=== PATIENT | male | born 1945 | race Caucasian/White ===

== ENCOUNTER 2016-09-19 09:05 | Day surgery (SDC) | payer MEDICARE, OTHER ==
--- NOTE | 2016-09-14 16:37 | HP ---
ADMISSION DIAGNOSIS: Excision with skin grafting. HISTORY: The patient has lesion, almost certainly malignant, requiring excision and skin graft. PAST MEDICAL HISTORY: ALLERGIES: None. MEDICATIONS: Tamsulosin, benazepine, Simvastin, amlodipine, aspirin. SURGERIES: 2006. SOCIAL HISTORY: Negative. FAMILY HISTORY: Negative. REVIEW OF SYSTEMS: Negative. PHYSICAL EXAMINATION: VITAL SIGNS: Normal. HEENT: Lesion on the left nasal naris. CHEST: Clear. COR: Regular. IMPRESSION: Lesion left nose. PLAN: Excision and skin graft.
[~2016-09-19 09:05] MED LIST: MINERAL OIL LIGHT 10 ML FOR SURGERY ONE; XYLOCAINE 1% HCL 20 ML MDV ONE
[2016-09-19] MEDS ORDERED: Sodium Chloride 0.9% 1000 ML 1,000 ML IV SCH (09:15)
[2016-09-19 09:24] VITALS: BP 137/61; PULSE 75; O2SAT 95
[2016-09-19] MEDS ORDERED: BACIGUENT 30 GM ONE (11:59)
[2016-09-19] MEDS ORDERED: DEMEROL 50 MG IJ ONE (16:03)
[2016-09-19] MEDS ORDERED: VERSED 5 MG/5 ML IV ONE (16:03)
--- NOTE | 2016-09-20 08:23 | OP ---
SURGERY DATE/TIME: 09/19/2016 1125 PREOPERATIVE DIAGNOSIS: Probable skin cancer on the nose, probable skin cancer right cheek. POSTOPERATIVE DIAGNOSIS: Probable skin cancer on the nose, probable skin cancer right cheek. PROCEDURES: 1) Excision of cheek lesion 1 cm lesion through a 2.5 cm elliptical excision with closure. 2) A 1.5 cm nose lesion excision through a 2 cm circular skin incision with harvesting of skin graft and application of split thickness skin graft. SURGEON: Celso Singer M.D. ANESTHESIA: Local IVS. COMPLICATIONS: None. CONDITION: Stable. INDICATION: The patient with the above two lesions. DESCRIPTION OF PROCEDURE: Taken to surgery. Routine prep and drape. 1% lidocaine. IV sedation titrated. Time out performed. Two areas taken and repaired as described and was satisfactory. The patient tolerated the procedure well.
== END 2016-09-19 13:00 | disposition home or self-care (01) ==
LOC: SDC 09:05
PROVIDERS: ATTEND Surgery
PROC: 0HB1XZZ Excision of Face Skin, External Approach (ICD-10-PCS; principal; 2016-09-19)
PROC: 0HR1X74 Replacement of Face Skin with Autologous Tissue Substitute, Partial Thickness, External Approach (ICD-10-PCS; 2016-09-19)
DX: C44.319 Basal cell carcinoma of skin of other parts of face (principal); C44.311 Basal cell carcinoma of skin of nose
CPT/HCPCS: 36415; J2175; J2250; A9270-GY

== ENCOUNTER 2022-02-08 06:19 | Day surgery (SDC) | payer MEDICARE, OTHER ==
[2022-02-08] MEDS ORDERED: Lactated Ringers 1,000 ML IV SCH (06:30)
[2022-02-08] MEDS ORDERED: Xylocaine-Mpf 2% 5 Ml Vial ONE (07:54)
[2022-02-08] MEDS ORDERED: DIPRIVAN 200 MG/20 ML IV ONE ×2 (07:54→08:12)
[2022-02-08] MEDS ORDERED: ATROPINE SULFATE 1MG ONE (08:00)
[2022-02-08] MEDS ORDERED: Ephedrine Sulfate 50 MG/ML ONE (08:09)
[2022-02-08 09:22] VITALS: BP 102/59; PULSE 68; O2SAT 96
--- NOTE | 2022-02-08 12:52 | OP ---
SURGERY DATE: 02/08/22 SURGERY TIME: 755 PREOPERATIVE DIAGNOSIS: 1. HISTORY OF COLON POLYPS. POSTOPERATIVE DIAGNOSIS: 1. MODERATE TO SEVERE SIGMOID DIVERTICULOSIS, OTHERWISE NORMAL COLON. PROCEDURE: 1. Colonoscopy. SURGEON: Dr. Sampson. ANESTHESIA: MAC. Medications given by the Anesthesia Department. BRIEF HISTORY: The patient is a 76 y/o WM presenting now for a screening for previous history of colon polyps. The patient reports 7 years ago he had polyps removed. He has had no problems since then. The patient was appraised of the risks of the procedure including the risk of perforation, phlebitis, untoward reaction to medication, bleeding, and missed lesions. The patient verbalized his understanding and desired to have the procedure performed. DESCRIPTION OF PROCEDURE: The patient was given the medications by the Anesthesia Department. He had continuous pulse oximetry, ECG monitoring, and intermittent BP monitoring during the examination. He was placed in the left lateral decubitus position. A digital rectal examination was performed and revealed normal anal sphincter tone, no masses, and an enlarged but normal otherwise prostate. The flexible Olympus pediatric colonoscope was used to intubate the rectum. A view of the colon was developed sequentially to the cecum. Upon insertion and withdrawal, including a retroflex view in the rectum, was noted moderate to severe sigmoid diverticulosis. No polyps however were noted. The scope was removed from the patient who tolerated the procedure well and was sent back to OP recovery in good condition. The prep was noted to be fair to at times poor with some solid stool still left in the colon.
== END 2022-02-08 09:25 | disposition home or self-care (01) ==
LOC: SDC 06:19
PROVIDERS: ATTEND Family Medicine
DX: Z09 Encounter for follow-up examination after completed treatment for conditions other than malignant neoplasm (principal); Z86.010 Personal history of colon polyps; K57.30 Diverticulosis of large intestine without perforation or abscess without bleeding
CPT/HCPCS: 99100; J0461; J2704

== ENCOUNTER 2022-10-18 10:31 | Emergency (ER) | payer MEDICARE, OTHER ==
--- NOTE | 2022-10-18 10:51 | ERPHSYRPT ---
- History of Present Illness Time Seen by Provider: 10/18/22 10:51 Source: patient, family Exam Limitations: no limitations Physician History: This is a 77-year-old white male patient of Dr. Randal Costa who was brought to the emergency department by his who provided additional, independent medical history and presents with sudden onset of lower back pain and lower abdominal pain at approximately 5 AM this morning. Pain has progressively worsened. Patient took 50 mg of tramadol approximately 10 AM. He had no nausea vomiting or diarrhea symptoms. Patient has a history of hypertension and hyperlipidemia. He does have a known thoracic aneurysm but no known abdominal aortic aneurysm. He has a history of nephrolithiasis requiring lithotripsy in the past. Patient denies chest pain. Patient denies shortness of breath. Patient did not suffer any fall or acute trauma. Timing/Duration: today Method of Injury: other (No injury) Quality: sharp Back Pain Location: lumbar spine Severity of Pain-Max: mild (Moderate) Severity of Pain-Current: moderate Associated Symptoms: lower back pain, No urinary incontinence, No loss of bowel control, No constipation, No problems urinating, No light-headedness, No dizziness, No numbness in legs/feet, No weakness Previous symptoms: no prior history, no recent treatment Allergies/Adverse Reactions: Penicillins Allergy (Mild, Verified 10/18/22 10:45) Hives Home Medications: Amlodipine Besylate 10 mg [Norvasc 10 MG] 10 mg PO DAILY 10/18/11 [History] Aspirin EC 81 mg [Ecotrin 81 mg] 81 mg PO DAILY 10/18/11 [History] Benazepril/Hydrochlorothiazide [Benazepril-Hctz 20-12.5 mg Tab] 1 each PO DAILY 10/18/11 [History] Simvastatin 20Mg [Zocor 20Mg] 20 mg PO HS 10/18/11 [History] Tamsulosin HCl 0.4 mg [Flomax 0.4 MG] 0.4 mg PO DAILY 10/18/11 [History] Metoprolol Tartrate 25 mg [Lopressor 25MG Tab] 1 tab PO BID 01/31/22 [History] Hx Influenza Vaccination/Date Given: Yes Hx Pneumococcal Vaccination/Date Given: Yes Travel Risk - International Travel Have you traveled outside of the country in past 3 weeks: No - Coronavirus Screening Are you exhibiting any of the following symptoms?: No Close contact with a COVID-19 positive Pt in past 14-21 Days: No - Review of Systems Constitutional: No Symptoms Eyes: No Symptoms Ears, Nose, & Throat: No Symptoms Respiratory: No Symptoms Cardiac: No Symptoms Abdominal/Gastrointestinal: Abdominal Pain (Bilateral lower quadrant), No Nausea, No Vomiting, No Diarrhea, No Constipation, No Hematochezia, No Melena Genitourinary Symptoms: No Symptoms Musculoskeletal: Back Pain Skin: No Symptoms Neurological: No Symptoms Psychological: No Symptoms Endocrine: No Symptoms Hematologic/Lymphatic: No Symptoms Immunological/Allergic: No Symptoms All Other Systems: Reviewed and Negative - Past Medical History Pertinent Past Medical History: Yes Neurological History: No Pertinent History ENT History: No Pertinent History Cardiac History: High Cholesterol, Hypertension Respiratory History: No Pertinent History Endocrine Medical History: No Pertinent History Musculoskeletal History: No Pertinent History GI Medical History: Gallbladder Disease, Polyps History: No Pertinent History Psycho-Social History: No Pertinent History Male Reproductive Disorders: Prostate Problems - Past Surgical History Past Surgical History: Yes Neuro Surgical History: No Pertinent History Cardiac: No Pertinent History Respiratory: No Pertinent History Gastrointestinal: Cholecystectomy Genitourinary: No Pertinent History Musculoskeletal: Orthopedic Surgery Male Surgical History: Vasectomy Other Surgical History: rt lower leg above ankle with pins placed, fx ribs 8 back skin cancer removed and facial skin cancer removed, 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" - Social History Smoking Status: Former smoker Exposure to second hand smoke: No Drug Use: none - Nursing Vital Signs Nursing Vital Signs: Initial Vital Signs Temperature 97 F 10/18/22 10:44 Pulse Rate 60 10/18/22 10:44 Respiratory Rate 16 10/18/22 10:44 Blood Pressure 159/79 10/18/22 10:44 O2 Sat by Pulse Oximetry 96 10/18/22 10:44 Pain Scale Pain Intensity [Right Lower 8 Back] Pain Intensity 5 - Physical Exam General Appearance: no apparent distress, alert Eye Exam: PERRL/EOMI, eyes nml inspection Ears, Nose, Throat Exam: normal ENT inspection, moist mucous membranes Neck Exam: normal inspection, non-tender, supple, full range of motion Respiratory Exam: normal breath sounds, lungs clear, airway intact, No chest tenderness, No respiratory distress Cardiovascular Exam: regular rate/rhythm, normal heart sounds, normal peripheral pulses Gastrointestinal Exam: soft, normal bowel sounds, tenderness (Mild bilateral lower quadrant to palpation), No rebound Back Exam: normal inspection, normal range of motion, No CVA tenderness, No ve rtebral tenderness Extremity Exam: normal inspection, normal range of motion, pelvis stable Neurologic Exam: alert, oriented x 3, cooperative, rescue worker II-XII nml as tested, normal mood/affect, nml cerebellar function, nml station & gait, sensation nml Skin Exam: normal color, warm, dry Lymphatic Exam: No adenopathy SpO2 Interpretation: normal O2 Delivery: Room Air - Course Nursing assessment & vital signs reviewed: Yes Ordered Tests: Active Orders 24 hr Category Date Time Status IV Insertion STAT Care 10/18/22 10:56 Active ABDOMEN AND PELVIS W/0 CONTRAS [CT] Stat Exams 10/18/22 10:57 Completed RECONSTRUCTION [CT] Routine Exams 10/18/22 11:02 Completed AMYLASE Stat Lab 10/18/22 11:02 Received CBC W DIFF Stat Lab 10/18/22 11:02 Completed CMP Stat Lab 10/18/22 11:02 Received CULTURE,URINE Stat Lab 10/18/22 11:03 Received LIPASE Stat Lab 10/18/22 11:02 Received PROTIME WITH INR Stat Lab 10/18/22 11:02 Received UA W/RFX UR CULTURE Stat Lab 10/18/22 11:03 Completed Medication Summary Discontinued Medications Generic Name Dose Route Start Last Admin Trade Name Jesusq PRN Reason Stop Dose Admin Hydromorphone HCl 0.5 mg 10/18/22 11:10 10/18/22 11:15 Hydromorphone 1 Mg/1ml Inj IV 10/18/22 11:11 0.5 mg STAT ONE Administration Hydromorphone HCl Confirm 10/18/22 11:13 Hydromorphone 1 Mg/1ml Inj Administered 10/18/22 11:14 Dose 1 mg .ROUTE .STK-MED ONE Ondansetron HCl 4 mg 10/18/22 11:10 10/18/22 11:15 Ondansetron Hcl 4 Mg/2 Ml Vial IV 10/18/22 11:11 4 mg STAT ONE Administration Ondansetron HCl Confirm 10/18/22 11:13 Ondansetron Hcl 4 Mg/2 Ml Vial Administered 10/18/22 11:14 Dose 4 mg .ROUTE .STK-MED ONE Lab/Rad Data: Laboratory Result Diagrams 10/18/22 11:02 Laboratory Results 10/18/22 10/18/22 Range/Units 11:03 11:02 WBC 7.5 (4.0-10.5) x10^3/uL RBC 5.12 (4.1-5.6) x10^6/uL Hgb 15.4 (12.5-18.0) g/dL Hct 44.9 (42-50) % MCV 87.7 (78-100) fL MCH 30.1 (26-32) pg MCHC 34.3 (32-36) g/dL RDW 13.1 (11.5-14.0) % Plt Count 260 (150-450) x10^3/uL MPV 9.6 (7.5-11.0) fL Gran % 70.2 H (36.0-66.0) % Immature Gran % (Auto) 0.4 (0.00-0.4) % Nucleat RBC Rel Count 0.0 (0.00-0.1) % Eos # (Auto) 0.19 (0-0.5) x10^3/uL Immature Gran # (Auto) 0.03 (0.00-0.03) x10^3u/L Absolute Lymphs (auto) 1.42 (1.0-4.6) x10^3/uL Absolute Monos (auto) 0.54 (0.0-1.3) x10^3/uL Absolute Nucleated RBC 0.00 (0.00-0.01) x10^3u/L Lymphocytes % 18.9 L (24.0-44.0) % Monocytes % 7.2 (0.0-12.0) % Eosinophils % 2.5 (0.00-5.0) % Basophils % 0.8 (0.0-0.4) % Absolute Granulocytes 5.26 (1.4-6.9) x10^3/uL Basophils # 0.06 (0-0.4) x10^3/uL Urine Color Yellow (Yellow) Urine Appearance Clear (Clear) Urine pH 5.0 (4.6-8.0) Ur Specific [place] 1.015 (1.005-1.030) Urine Protein Negative (Negative) Urine Glucose (UA) Negative (Negative) mg/dL Urine Ketones Negative (Negative) Urine Blood Moderate A (Negative) Urine Nitrite Negative (Negative) Urine Bilirubin Negative (Negative) Urine Urobilinogen 0.2 (0.2) mg/dL Ur Leukocyte Esterase Moderate A (Negative) U Hyaline Cast (Auto) NONE SEEN (0-2) /LPF Urine Microscopic RBC 11-20 A (0-5) /HPF Urine Microscopic WBC 21-50 A (0-5) /HPF Ur Epithelial Cells None Seen (None Seen) /HPF Urine Bacteria Rare A (None Seen) /HPF Urine Culture Reflexed YES (NO) - Progress Progress: improved, pain not gone completely, re-examined Progress Note: 10/18/22 11:49 This patient's medical issue is 1 of moderate complexity. Level complexity in the work-up performed is based on review of the patient's past medical history, review the patient's medication list, review the patient's drug allergy list, history of present illness and physical findings on examination. The work-up in this patient includes intravenous line placement, infusion of 1 L normal saline solution, infusion of 4 mg intravenous Zofran, infusion of 1 mg intravenous Dilaudid, CBC, CMP, amylase, lipase and urinalysis. We also are ordering a CT scan of the abdomen pelvis with reconstruction of the lumbar spine. We want to evaluate the abdomen and pelvis, aorta and lumbar spine for any acute abnormalities. The CT scan of the abdomen and pelvis without contrast as well as reconstruction of the lumbar spine shows the following findings: There is a 6 mm distal right ureteral calculus with obstructive uropathy that is 1 cm proximal to the UVJ. In addition there is moderate degenerative changes in bilateral hips and throug hout the thoracolumbar spine. 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 There is no evidence of abdominal aortic aneurysm. We will attempt to contact the patient's urologist. The patient is already on Flomax. We will provide him a prescription for [place] pain medication to be used instead of the tramadol. We are awaiting the urinalysis to see if the patient also requires an antibiotic. We will provide the patient 30 mg of Toradol intravenously 10/18/22 11:55 Counseled pt/family regarding: lab results, diagnosis, need for follow-up, rad results Medical Desision Making - Independent Historian Additional History obtained from: Spouse - Diagnostic Testing Diagnostic test were ordered, analyzed, and reviewed by me: Yes Radiological Interpretation: Reviewed by me, Teleradiologist Report - Risk of complications The pt has a mod risk of morbidity or mortality based on: Need for prescription drug management - Departure Departure Disposition: Home Clinical Impression: Right ureteral calculus, UTI (urinary tract infection), Obstructive uropathy Condition: Stable Critical Care Time: No Referrals: YOJANA GARCIA [Primary Care Provider] - Follow up/PCP as directed Additional Instructions: Drink plenty of fluids. Take ibuprofen 600 mg orally 3 times a day for the next 5 days if there are no contraindications. Follow-up with your urologist for further evaluation management. Take your other medication as prescribed including your Flomax. Do not take your tramadol while taking the prescription for [place] 5/325. Prescriptions: Hydrocodone/APAP 5/325 [[place] 5/325 mg] 1 each PO Q6H PRN PRN #9 tablet MDD 3 PRN Reason: Pain Ciprofloxacin [Cipro 500 MG] 500 mg PO BID #14 tablet
[2022-10-18 11:03] VITALS: RESP 16; TEMP 97
[2022-10-18] MEDS ORDERED: Zofran 4 MG/2 ML VIAL IV ONE (11:10)
[2022-10-18] MEDS ORDERED: Hydromorphone 1 mg/ml Injection IV ONE (11:10)
[2022-10-18] MEDS ORDERED: Hydromorphone 1 mg/ml Injection ONE (11:13)
[2022-10-18] MEDS ORDERED: Zofran 4 MG/2 ML VIAL ONE (11:13)
[2022-10-18 11:30] LABS: Absolute Neutrophil Ct (ANC) 5.26 x10^3/uL (1.4-6.9); BASOPHIL % 0.8 % (0.0-0.4); Basophil (Absolute #) 0.06 x10^3/uL (0-0.4); Eosinophil % 2.5 % (0.00-5.0); Eosinophil (Absolute #) 0.19 x10^3/uL (0-0.5); Hematocrit 44.9 % (42-50); Hemoglobin 15.4 g/dL (12.5-18.0); IMMATURE GRAN # 0.03 x10^3u/L (0.00-0.03); IMMATURE GRAN % 0.4 % (0.00-0.4); Lymphocyte (Absolute #) 1.42 x10^3/uL (1.0-4.6); Lymphocytes % 18.9 % (24.0-44.0); Mean Cell Volume 87.7 fL (78-100); Mean Corpuscular Hemoglobin 30.1 pg (26-32); Mean Corpuscular Hgb Concent. 34.3 g/dL (32-36); Mean Platelet Volume 9.6 fL (7.5-11.0); Monocyte (Absolute #) 0.54 x10^3/uL (0.0-1.3); Monocytes % 7.2 % (0.0-12.0); Neutrophil % 70.2 % (36.0-66.0); Platelet Count 260 x10^3/uL (150-450); Red Blood Count 5.12 x10^6/uL (4.1-5.6); Red Cell Distribution Width 13.1 % (11.5-14.0); White Blood Count 7.5 x10^3/uL (4.0-10.5)
[2022-10-18 11:38] LABS: Appearance Clear (Clear); Bacteria Rare /HPF (None Seen); Bilirubin Negative (Negative); Blood Moderate (Negative); Epithelial Cells None Seen /HPF (None Seen); Glucose, Urine Negative (Negative); Hyaline Casts NONE SEEN /LPF (0-2); Ketones Negative (Negative); Leukocyte Esterase Moderate (Negative); Nitrite Negative (Negative); Protein,Urine Dip Negative (Negative); Specific Gravity 1.015 (1.005-1.030); Urobilinogen 0.2 mg/dL (0.2); WBC 21-50 /HPF (0-5)
--- NOTE | 2022-10-18 11:40 | XRAY ---
Indication: Abdomen and back pain. Multiple contiguous axial images obtained through abdomen and pelvis without contrast. Comparison: None Lung bases demonstrate mild bibasilar subsegmental atelectasis/scarring. Left costophrenic angle demonstrates 6 x 11 mm noncalcified nodule. Heart not enlarged. Small hiatal hernia. Noncontrasted stomach and bowel loops appear nonobstructed with normal appendix. Diffuse scattered colonic diverticulosis greatest in descending and sigmoid. No free fluid/air. Incidental cholecystectomy and tiny hepatic/splenic calcified granulomas. Distal right ureter demonstrates 6 mm calculus approximately 1 cm proximal to UVJ. Proximal right ureter is prominent up to 9 mm along with moderate hydronephrosis consistent with obstructive uropathy. Remaining liver, pancreas, spleen, adrenal glands, kidneys, ureters, and bladder are unremarkable for noncontrast exam. Moderate scattered aortoiliac calcifications without AAA. Osseous structures intact with osteopenia, moderate degenerative changes throughout the thoracolumbar spine, mild levorotoscoliosis centered at L2, and mild degenerative changes both hips. Impression: 1. 6 mm distal right ureteral calculus producing obstructive uropathy as detailed. 2. Small left costophrenic angle indeterminate noncalcified pulmonary nodule. Outside comparison studies recommended if available. If not, baseline CT chest recommended with follow-up per Fleischner guidelines. 3. Chronic findings including hiatal hernia, colonic diverticulosis, arteriosclerotic disease, chronic bony findings, and old granulomatous disease.
[2022-10-18 11:42] LABS: ADD URINE CULTURE? YES (NO)
--- NOTE | 2022-10-18 11:42 | XRAY ---
Indication: Abdomen and back pain. Sagittal, coronal, and axial reformatted images lumbar spine obtained using raw data from same day CT abdomen/pelvis Comparison: None Osseous structures intact with osteopenia, moderate degenerative changes throughout visualized thoracolumbar spine, and mild levorotoscoliosis centered at L2. No acute fracture, suspicious bony lesions, or spinal canal stenosis. CT abdomen/pelvis reported separately. Impression: Nonacute lumbar spine with chronic features.
[2022-10-18 11:44] LABS: INR 0.9 (0.8-3.0); PROTIME 9.9 SECONDS (9.4-12.5)
[2022-10-18 11:47] LABS: ALBUMIN 3.9 g/dL (3.5-5.0); ALKALINE PHOSPHATASE 95 U/L (38-126); AMYLASE 89 U/L (30-110); BLOOD UREA NITROGEN 23 mg/dL (9-20); CHLORIDE 107 mmol/L (98-107); Calcium 8.7 mg/dL (8.4-10.2); Carbon Dioxide 26 mmol/L (22-30); Creatinine 1 1.04 mg/dL (0.66-1.25); EST GLOMERULAR FILTRATION RATE > 60.0 ML/MIN; Glucose 94 mg/dL (74-106); LIPASE 104 U/L (23-300); Potassium 3.9 mmol/L (3.5-5.1); SGOT/AST 27 U/L (17-59); SGPT/ALT 23 U/L (0-50); SODIUM 141 mmol/L (137-145); Total Protein 6.6 g/dL (6.3-8.2)
[2022-10-18] MEDS ORDERED: Sodium Chloride 0.9% 500 ML 500 ML IV ONE ×2 (11:55→12:08)
[2022-10-18] MEDS ORDERED: Levofloxacin 500 MG Tablet PO ONE (11:56)
[2022-10-18] MEDS ORDERED: TORAdol 30 mg Injection IV ONE (11:56)
[2022-10-18] MEDS ORDERED: Levofloxacin 500MG/100ML D5W 0 MG/0 ML BAG IV ONE (12:08)
[2022-10-18] MEDS ORDERED: TORAdol 30 mg Injection ONE (12:08)
[2022-10-18] MEDS ORDERED: Levofloxacin 500 MG Tablet ONE (12:09)
[2022-10-18 13:34] VITALS: BP 131/67; PULSE 65; O2SAT 94
== END 2022-10-18 14:08 | disposition home or self-care (01) ==
LOC: ED 10:31
DX: N20.1 Calculus of ureter (principal); N39.0 Urinary tract infection, site not specified; N13.9 Obstructive and reflux uropathy, unspecified; M54.50 Low back pain, unspecified; R10.30 Lower abdominal pain, unspecified; I10 Essential (primary) hypertension; E78.5 Hyperlipidemia, unspecified; Z79.891 Long term (current) use of opiate analgesic; Z79.899 Other long term (current) drug therapy; Z87.442 Personal history of urinary calculi
CPT/HCPCS: 36000; 36415; 74176; 76376; 80053; 81001; 82150; 83690; 85025; 85610; 87077; 87086; 87186; 96374; 96375; 99284; J1170; J1885; J1956; J2405; A9270-GY